=== PATIENT | female | born 1930 | race Caucasian/White ===

== ENCOUNTER 2016-10-11 21:16 | Observation (INO) | payer MEDICARE ==
--- NOTE | 2016-10-11 21:32 | ED.REPORT ---
HPI-Stroke / CVA Oct 11, 2016 ED Provider: Dr. Jossue Costello M.D. An 86 year old female with a history of epilepsy, ICH, CT, and brain tumor presents to the ED via EMS from her halfway with right-sided weakness onset sometime after 5pm. The patient was given her evening medication at 5pm and appeared normal at this time, per her nurse. However, she soon became nonverbal with a right-sided gaze. EMS found the patient with a BP of 162/70, an O2 sat of 97% on 3L, and otherwise normal vital signs. En route she was able to minimally follow commands including squeezing her left hand and turning her head to the left. The patient was in the ED on 09/20/16 with similar symptoms and subsequent seizure. Notes from that visit indicate patient is DNR/DNI on hospice. Nursing Notes Stated Complaint: RIGHT SIDED WEAKNESS Nursing Notes Reviewed: Yes Allergies: Coded Allergies: erythromycin base (Verified Allergy, Unknown, 10/11/16) prednisone (Verified Allergy, Unknown, 10/11/16) zolpidem (Verified Allergy, Unknown, 10/11/16) General Time Seen by Provider: 21:31 Chief Complaint Weakness, Unable to speak Right-sided Hx Obtained From: EMS Unable to Obtain Hx: Patient condition, Mental status Arrived By: Ambulance Time last known well 1700 Sudden in Onset?: Yes Symptom Duration: Since onset Progression Since Onset: Gradually worsening Pertinent Negative: Relieved by nothing Context Related History: Reports: Seizure disorder Context: Immunizations Unknown Recent Healthcare: Recent doctor visit Similar Sx Previous: Yes Past Medical History Past Medical History Notes: Pt is DNR/DNI Past Medical History Epilepsy Hx of ICH Hx of CT Brain tumor Past Surgical History None reported Smoking History Unknown if Ever Smoker Review of Systems Unable to Obtain ROS Patient condition, Mental status Physical Exam Physical Exam Notes: Initial Vital Signs Vital Signs (First) Date Time Temp Pulse Resp B/P Pulse Ox O2 Delivery O2 Flow Rate FiO2 10/11/16 21:44 223/177 10/11/16 21:49 68 14 99 Simple Mask 5 Initial VS: Reviewed Abdomen / GI: Soft, Non-tender Skin: Warm, Dry GENERAL/CONSTITUTIONAL: Patient's eyes are open but she does not follow commands. She is nonverbal. Head / Eyes: Atraumatic, Normocephalic Right preferential gaze Neck: Atraumatic, Supple Respiratory / Chest: Breath sounds NL, Breath sounds = bilat, No respiratory distress Cardiovascular: Heart rate NL, Regular rhythm, Heart sounds NL NEUROLOGIC: No motor function in right arm, some in left arm. Unable to follow commands. Re-Eval/Medical Decision Med Decision/Clinical Course Shortly after arrival the patient developed a grand mal generalized tonic- clonic seizure which was aborted with 5 mg of IV Valium. I discussed the case subsequently with her son who was quite confident that all of the symptoms this evening were related to a seizure disorder that she that she has suffered from for some time now. He says that she was recently discontinued off of hospice 2 or 3 weeks ago but that has nothing to do with her seizure disorder and is related to her cardiac disease. Pacemaker had been recommended but she had declined this. He reiterates her DO NOT RESUSCITATE/comfort measures only status though I have no POLST form to that effect. Her son says that last time she was here earlier this month with similar symptoms she underwent a large workup which she says that she should not undergo this time nor does he have any desire for further testing only for her comfort and treatment of seizures. After couple of hours she remains extremely sedated and unable to respond verbally in any way or follow commands. Consistent with the sons experienced with previous episodes like this we will admit her to the hospital for observation until she becomes alert enough to be transferred back to her assisted living status at [facility]. Source of Hx: Old records Re-Evaluation/Progress #1: Time of Eval: 21:52 Re-Evaluation/Progress Note: Patient is currently exhitibing grand mal seizure activity. Re-Evaluation/Progress #2: Time of Eval: 21:59 Re-Evaluation/Progress Note: Discussed patient's case with her son over the phone. He reports that the patient has had similar symptoms many times in the past associated with seizures, usually followed by a two-day period of decreased responsiveness. The patient is DNR/DNI. Discussed with patient's son diagnosis and plan for admit. Patient's son agrees with plan for care and all questions were addressed. Consultation #1: Call Returned at: 21:55 Note: Hospice: Note from a previous visit indicated patient was under hospice care. However, she is no longer in their system. Consultation #2: Referral / Consult Name: Cristian Norris MD Consulted With: Convention Services Director Call Returned at: 23:32 Screen Printing Equipment Setter: Agrees with eval, Agrees with plan, Accepts admit Counseled Regarding: Diagnosis, Need for admission Patient Discharge & Departure Impression: Primary Impression: Seizure Additional Impression: Sedated Disposition: ADMITTED TO HOSPITAL Discharge Condition All VS Reviewed: Yes Condition: Improved Referrals: NOPCP (PCP) (Family) Madan[facility] Attestation Portions of this note were transcribed by Lucinda Gonzales. I, Dr. Costello, personally performed the history, physical exam, and medical decision-making; I reviewed and confirmed the accuracy of the information in the transcribed note. Signed by: Esther Mcbride, 10/11/2016, 23:45 Jossue Costello MD Oct 11, 2016 21:32 LUCINDA GONZALES Oct 11, 2016 22:11
[2016-10-11 21:44] VITALS: BP 223/177
[2016-10-11 21:49] VITALS: BP 118/54; PULSE 68; RESP 14; O2SAT 99
[2016-10-11 23:30] VITALS: BP 124/61; PULSE 67; RESP 14; O2SAT 98
[2016-10-11] MEDS ORDERED: Polyethylene Glycol (PEG) 17 Gm Powder PO PRN (23:40)
[2016-10-11] MEDS ORDERED: Ondansetron 2 mg/mL 2 mL Inj IVPUSH PRN (23:40)
[2016-10-11] MEDS ORDERED: Alum-Mag Hydrox-Simeth 30 mL Suspension PO PRN (23:40)
--- NOTE | 2016-10-12 00:08 | PCM.HPMED ---
Subjective Date of Service Oct 12, 2016 Primary Provider: Admitting Physician: Primary Care Physician: Monse Danielson MD Attending Physician: Chief Complaint: Right sided weakness History of Present Illness: Patient is an 86 year old female with a history of epilepsy, ICH, [place], and brain tumor. She presented to the ED via EMS from her fpc with right-sided weakness onset sometime after 5pm. The patient was given her evening medication at 5pm and appeared normal at this time, per her nurse. However, she soon became nonverbal with a right-sided gaze. EMS found the patient with a BP of 162 /70, an O2 sat of 97% on 3L, and otherwise normal vital signs. En route she was able to minimally follow commands including squeezing her left hand and turning her head to the left. The patient was in the ED on 09/20/16 with similar symptoms and subsequent seizure. ED spoke with son who was quite confident that all of the symptoms this evening were related to a seizure disorder that she that she has suffered from for some time now. He says that she was recently discontinued off of hospice 2 or 3 weeks ago but that has nothing to do with her seizure disorder and is related to her cardiac disease. Son reported that last time she was here earlier this month with similar symptoms she underwent a large workup which she says that she should not undergo this time nor does he have any desire for further testing only for her comfort and treatment of seizures. He stated she is DO NOT RESUSCITATE/comfort measures.. At time of exam patient is non verbal somnolent. History taken from ED and EMS, patient history limited due to patient's medical condition and response to medication. Review of Systems: Unable to obtain due to patient's LOC Allergies Coded Allergies: erythromycin base (Verified Allergy, Unknown, 10/11/16) prednisone (Verified Allergy, Unknown, 10/11/16) zolpidem (Verified Allergy, Unknown, 10/11/16) PMH Epilepsy ICH [place] Brain tumor On comfort care Surgical History Unable to obtain due to patent LOC Family History Unable to obtain due to patent LOC Social History Smoking Status: Unknown if Ever Smoker Exam Vital Signs Vital Sign - Last Date Time Temp Pulse Resp B/P Pulse Ox O2 Delivery O2 Flow Rate FiO2 10/11/16 23:30 67 14 124/61 98 Nasal Cannula 2 Exam General: Somolent, no acute distress, frail appearing 86 y.o. F, alter to person and pain HEENT: Normocephalic, atraumatic, old surgical scar on right temporal region. External ears without defect. Pupils narrowed equal, round, and reactive to light and accommodation. Anicteric sclerae, moist conjunctivae, and no lid lag. Neck: Supple with full range of motion. No jugular venous distension. No bruits. No lymphadenopathy or thyromegaly. Cardiovascular: Regular rate and rhythm with no murmurs, rubs, or gallops appreciated Pulmonary: Clear to auscultation bilaterally with no crackles, wheezes, or rhonchi. Normal respiratory effort with no use of accessory muscles. Abdomen: Bowel tones present. Soft, nontender, nondistended. No hepatosplenomegaly or masses appreciated. Extremities: Right sided weakness, No clubbing, cyanosis, edema, or lymphadenopathy appreciated. Skin: Normal temperature, turgor, and texture; no rash, ulcers, or subcutaneous nodules appreciated. Neurological: Non-verbal, alert to person and pain, right peripheral gaze, right sided weakness, able to squeeze left hand on command, able to move lower extremities. Assessment & Plan Patient is an 86 year old female with a history of epilepsy, ICH, [place], and brain tumor. Admitted for observation of acute encephalopathy due to sedative response to Ativan given for seizure. Patient is DNR/DNI on comfort care at [facility], son does not wish for further work up. 1. Acute encephalopathy - Continue to monitor vitals and respiratory status - Continue cautious fluid hydration NS @ 80 mls/hr - Patient is on comfort care and son does not wish for further work up 2. Acute sedation due to Benzodiazepine - Continue to monitor as above #1 CODE STATUS: DNR/DNI DVT prophylaxis: SCDs Patient is admitted under observation status with expected length of stay less than 2 midnights due to severity of presenting symptoms, risk of adverse event Attending Statement The patient was seen and examined together with Dr. Stacy on 10/11 and I agree with the history, exam and plan as outlined in the note above. MAZIN STACY DO Oct 12, 2016 00:08 Cristian Norris MD Oct 12, 2016 02:24
[2016-10-12 01:12] VITALS: BP 132/62; PULSE 60; RESP 15; O2SAT 95
[2016-10-12] MEDS: 0.9% Sodium Chloride 1,000 ML IV SCH ×2 (01:51→12:50)
--- NOTE | 2016-10-12 02:36 | NUR ---
Admit note: Pt arrived from the ER, slide transfer to bed. Pt is opening eyes when name is stated, is saying "I'm cold"; but not verbally responding to questions when asked. Pt moving all extremities on own, restless in bed, adjusting covers on own. Seizure pads in place. Unable to get information for the admit, attempted to complete med rec, old information was sent from SNF. Called [facility] and requested current medication list; awaiting a fax at this time. Bed alarm activated for pt safety.
[2016-10-12 02:40] LABS: APPEARANCE,URINE HAZY (CLEAR,HAZY); COLOR,URINE STRAW (YELLOW); OCCULT BLOOD,URINE TRACE (NEGATIVE); PH,URINE 6.5 (5.0-8.0); UROBILINOGEN,URINE NORMAL (NORMAL)
[2016-10-12] MEDS ORDERED: CALC-952 PO (03:13)
[2016-10-12] MEDS ORDERED: CLOP75TA3 PO (03:13)
[2016-10-12] MEDS ORDERED: LEVO25TA73 PO (03:13)
[2016-10-12] MEDS ORDERED: GUAI-656 PO (03:13)
[2016-10-12] MEDS ORDERED: IPRA3AMP IH (03:13)
[2016-10-12] MEDS ORDERED: ATRV10T PO (03:13)
[2016-10-12] MEDS ORDERED: GUAI120L30 PO (03:13)
[2016-10-12] MEDS ORDERED: DEXT1DRO8 BOTH_EYES (03:13)
[2016-10-12] MEDS ORDERED: PSYL1PAC10 PO (03:13)
[2016-10-12] MEDS ORDERED: CHOL100043 PO (03:13)
[2016-10-12] MEDS ORDERED: HYDR25SU7 RC (03:13)
[2016-10-12] MEDS ORDERED: AMOX500C2 PO (03:13)
[2016-10-12] MEDS ORDERED: MENT2.7L MM (03:13)
[2016-10-12] MEDS ORDERED: GABA-502 PO (03:13)
[2016-10-12] MEDS ORDERED: NITR0.4T SL (03:14)
[2016-10-12] MEDS ORDERED: HYDR-4003 PO (03:14)
[2016-10-12] MEDS ORDERED: SPIR25TA3 PO (03:14)
[2016-10-12] MEDS ORDERED: POLY1DRO BOTH_EYES (03:14)
[2016-10-12] MEDS ORDERED: METO25TA6 PO (03:14)
[2016-10-12] MEDS ORDERED: URSO250T11 PO (03:14)
[2016-10-12] MEDS ORDERED: POTA20LI2 PO (03:14)
[2016-10-12] MEDS ORDERED: CARB1DRO BOTH_EYES (03:14)
[2016-10-12 05:43] VITALS: BP 146/64; PULSE 64; RESP 16; O2SAT 97
--- NOTE | 2016-10-12 12:14 | PCM.DIMED ---
Cherise Chung DO 10/12/16 1207: Discharge Instructions Date of Service Oct 12, 2016 Dates of Hospitalization Oct 12, 2016 at 00:28 Discharge Diagnosis Discharge Diagnosis 1. Acute encephalopathy 2. Urinary tract infection 3. Acute sedation due to benzodiazepine, resolved 4. History of epilepsy 5. History of [place] Medication Instructions Take Keflex twice a day for 3 days Test Results Urinalysis shows possible UTI, culture pending. Diet Other (dysphagia) Call your provider Fever or Chills, Excessive diarrhea, Weakness (unilateral) Patient Instructions Return home to [facility] Follow-up plan follow up with care provider at [place], recheck Urine in 1 week if desired for follow up from antibiotic treatment. Follow-up Provider: Monse Danielson MD Follow-up with PCP in: 1 week Delmar Melgoza MD 10/12/16 1459: Discharge Instructions Attending's Statement The patient was seen and examined independently on 10/12/2016and discussed case with Dr. Chung and I agree with the discharge instructions and plan as outlined in the note above. Cherise Chung DO Oct 12, 2016 12:07 Delmar Melgoza MD Oct 12, 2016 14:59
[2016-10-12] MEDS ORDERED: Acetaminophen PO (12:21)
[2016-10-12] MEDS ORDERED: CEPH500C PO (12:21)
--- NOTE | 2016-10-12 13:36 | NUR ---
Scheduled BLS transport for 1430 via [facility], patient is returning to [facility] assisted living. Updated COMMUNITY HEALTH NAVIGATOR
[2016-10-12 13:38] VITALS: BP 127/59; PULSE 62; RESP 16; O2SAT 96
--- NOTE | 2016-10-12 14:54 | NUR ---
Discharge Pt transferred back to [facility] via EMS at 1453. Pt denied pain. IV d/c. All personal belongings left with pt. Report called to Esmer at [facility]. Family updated of transfer by ABIODUN.
--- NOTE | 2016-10-12 15:18 | NUR ---
Social Work-initial assessment/ discharge: data:See initial assessment. Pt is a 86 y/o female who was admitted on 10/12/16 for seizure per H&P. Pt's insurance is [facility] and PCP is Monse Danielson MD. EMR reviewed. Pt has baseline dementia. SW called and spoke with Son Juan Jose. Pt resides at [facility] where she remains independent with basic ADLs. Pt uses a fww at baseline and does not drive. Pt has no HH history, but has been to [facility] SNF. Pt has no manager terminal care insurance or VA benefits. SW discussed DPOA/ advanced directive, son confirms they have completed this paperwork. SW spoke with Adrienne in Admissions at [facility] who confirms that she has spoken with assisted living and they can accept pt back today. SW faxed discharge orders. SW and UR Specialist reviewed chart and feel pt meets criteria for BLS. UR specialist set this up for 1430. SW updated Adrienne at [facility] and she will let [facility] know the time. ABIODUN called son back and updated him on discharge. SW provided him with discharge time and pt returning to Suites. ABIODUN explained that ABIODUN cannot guarantee that insurance will cover the cost of transport, son agreeable to proceed. All updated and agreeable to plan. Assessment;Pt to return back to [facility]. Plan:pt to discharge back [facility] today via BLS at 1430. All updated and agreeable to plan. EWA Esparza Addendum: 10/12/16 at 1522 by CHELLY KIDD Amended: Links added.
--- NOTE | 2016-10-12 18:25 | PCM.DC.MED ---
Discharge Summary Date of Service Oct 12, 2016 Dates of Hospitalization Date of Hospital Admission Oct 12, 2016 at 00:28 Date of Discharge: Oct 12, 2016 Providers: Admitting Physician: Cristian Norris MD Primary Care Physician: Monse Danielson MD Attending Physician: Cristian Norris MD Diagnosis at Time of Discharge Diagnosis at Time of Discharge 1. Acute encephalopathy 2. Urinary tract infection 3. Acute sedation due to benzodiazepine, resolved 4. History of epilepsy 5. History of [place] Brief History History of present illness on admission by Dr. Stacy: Patient is an 86 year old female with a history of epilepsy, ICH, [place], and brain tumor. She presented to the ED via EMS from her halfway with right-sided weakness onset sometime after 5pm. The patient was given her evening medication at 5pm and appeared normal at this time, per her nurse. However, she soon became nonverbal with a right-sided gaze. EMS found the patient with a BP of 162 /70, an O2 sat of 97% on 3L, and otherwise normal vital signs. En route she was able to minimally follow commands including squeezing her left hand and turning her head to the left. The patient was in the ED on 09/20/16 with similar symptoms and subsequent seizure. ED spoke with son who was quite confident that all of the symptoms this evening were related to a seizure disorder that she that she has suffered from for some time now. He says that she was recently discontinued off of hospice 2 or 3 weeks ago but that has nothing to do with her seizure disorder and is related to her cardiac disease. Son reported that last time she was here earlier this month with similar symptoms she underwent a large workup which she says that she should not undergo this time nor does he have any desire for further testing only for her comfort and treatment of seizures. He stated she is DO NOT RESUSCITATE/comfort measures.. At time of exam patient is non verbal somnolent. History taken from ED and EMS, patient history limited due to patient's medical condition and response to medication. Hospital Course Patient is an 86 year old female with a history of epilepsy, ICH, [place], and brain tumor. Admitted for observation of acute encephalopathy due to sedative response to volume given for seizure in the emergency department. Patient is DNR /DNI on comfort care at [facility] home, son does not wish for further work up. 1. Acute encephalopathy - due to valium given in ED and postictal - treated with Cautious fluid hydration NS @ 80 mls/hr - Patient is on comfort care and son does not wish for further work up -discharge back to [place] on comfort care -mentation improved with conservative management 2. Urinary tract infection, present on admission, chronicity unknown - Patient treated with oral Keflex and given a prescription for a 3 day course. - POLST form at [facility] home referenced with antibiotic treatment okay patient - By mouth Tylenol given to patient as she appeared to have some mild discomfort on examination. 3. Acute sedation due to Benzodiazepine - Patient monitored with resolution of sedation by morning examination. CODE STATUS: DNR/DNI DVT prophylaxis: SCDs Exam Vital Signs (Last) Date Time Temp Pulse Resp B/P Pulse Ox O2 Delivery O2 Flow Rate FiO2 10/12/16 13:38 36.7 62 16 127/59 96 Room Air 10/11/16 23:30 2 Exam General: Elderly female in mild distress needing to urinate, well-developed, nourished HEENT: Normocephalic, atraumatic. External ears without defect. Pupils equal, round, and reactive to light and accommodation. Anicteric sclerae, moist conjunctivae, and no lid lag. Oropharynx free of erythema and cobble stoning mouth with some crusting on the lips. Neck: Supple with full range of motion. No jugular venous distension. No lymphadenopathy or thyromegaly. Cardiovascular: Regular rate and rhythm with no murmurs, rubs, or gallops appreciated Pulmonary: Clear to auscultation bilaterally with no crackles, wheezes, or rhonchi. Normal respiratory effort with no use of accessory muscles. Abdomen: Bowel tones present. Soft, nontender, nondistended. No hepatosplenomegaly or masses appreciated. Extremities: No clubbing, cyanosis, edema, or lymphadenopathy appreciated. Skin: Normal temperature, turgor, and texture; no rash, ulcers, or subcutaneous nodules appreciated. Neurological: Patient generally weak and unable to participate in full neurologic exam Psychiatric: not speaking in complete sentences or answering questions appropriately. Patient states that she wants to Test 10/12/16 02:00 Urine Color Straw (YELLOW) Urine Appearance Hazy (CLEAR,HAZY) Urine pH 6.5 (5.0-8.0) Urine Specific [place] 1.010 (1.003-1.035) Urine Protein Negativemg/dL (NEG,TRACE) Urine Glucose (UA) Negativemg/dL (NEGATIVE) Urine Ketones Negativemg/dL (NEGATIVE) Urine Occult Blood Trace (NEGATIVE) Urine Nitrite Negative (NEGATIVE) Urine Bilirubin Negative (NEGATIVE) Urine Urobilinogen Normalmg/dL (NORMAL) Urine Leukocyte Esterase Small (NEGATIVE) Urine RBC 3-10/hpf (0-2) Urine WBC 11-50/hpf (0-5) Urine Epithelial Cells Few/hpf (NONE-MOD) Urine Crystals None seen (NONE SEEN) Urine Bacteria None/hpf (NONE-FEW) Urine Hyaline Casts None/lpf (NONE) Urine Granular Casts None seen (NONE SEEN) Urine Waxy Casts None seen (NONE SEEN) Urine Red Blood Cell Casts None seen (NONE SEEN) Urine White Blood Cell Casts None seen (NONE SEEN) Urine Mucus None seen (None Seen) Urine Trichomonas None seen (NONE SEEN) Urine Yeast None (NONE SEEN) Urinalysis Comment Urine Culture Reflexed Indicated Microbiology Results Urine culture pending Discharge Medications Discharge Medications Atorvastatin (Lipitor) 10 Mg Tab 10 MG PO HS (Reported) Calcium Carbonate/Vitamin D3 (Calcium 500 mg Chewable Tablet) 1 Each Tab.chew 1 EACH PO BID (Reported) Cephalexin (Cephalexin) 500 Mg Capsule 500 MG PO BID Prescribed by: LEDY JEROME DO Cholecalciferol (Vitamin D3) (Vitamin D) 1,000 Unit Tablet 1,000 UNIT PO DAILY ( Reported) Clopidogrel Bisulfate (Plavix) 75 Mg Tablet 75 MG PO DAILY (Reported) Gabapentin (Gabapentin) 300 Mg Capsule 300 MG PO QID (Reported) Levothyroxine Sodium (Levo-T) 25 Mcg Tablet 37.5 MCG PO DAILY (Reported) Metoprolol Tartrate (Metoprolol Tartrate) 25 Mg Tablet 25 MG PO BID (Reported) HOLD IF SBP <100 OR HR <55 Potassium Chloride (Potassium Chloride) 20 Meq/15 Ml Liquid 20 MEQ PO DAILY ( Reported) Psyllium Seed (with Sugar) (Metamucil Packet) 1 Each Packet 1 EACH PO DAILY ( Reported) Spironolactone (Spironolactone) 25 Mg Tablet 12.5 MG PO DAILY (Reported) Ursodiol (Ursodiol) 250 Mg Tablet 500 MG PO BID (Reported) As needed ([Acetaminophen]) 325 MG TABLET 650 MG PO Q6H PRN PRN for pain or irritability Prescribed by: LEDY JEROME, Amoxicillin (Amoxicillin) 500 Mg Capsule 2,000 MG PO PRN PRN (Reported) TAKE 4(500MG) CAPSULES 1 HOUR PRIOR TO DENTAL PROCEDURE. Carboxymethylcellulose Sodium (Lubricant Plus) 0.5 % Droperette 1 EACH BOTH_ EYES Q1H PRN PRN DRY EYES (Reported) Dextran 70/Hypromellose/Pf (Artificial Tears Drops) 1 Each Droperette 2 DROP BOTH_EYES QID PRN PRN For Eye Irritation (Reported) Guaifenesin (Tussin Chest Congestion) 100 Mg/5 Ml Liquid 200 MG PO Q6H PRN PRN For Cough (Reported) Guaifenesin/Codeine Phosphate (Guaifen-Codeine 100-10 mg/5 ml) 120 Ml Liquid 5- 10 ML PO Q4H PRN PRN For Cough (Reported) 5 mL FOR MODERATE COUGH, 10 mL FOR SEVERE COUGH Hydrocodone-Acetaminophen 5-325 mg (Hydrocodone-Acetaminophen 5-325 mg) 1 Each Tablet 1 TABLET PO Q4H PRN PRN For Pain (Reported) Hydrocortisone Acetate (Hydrocortisone Acetate) 25 Mg Supp.rect 25 MG RC BID PRN PRN HEMORROIDS (Reported) Ipratropium/Albuterol Sulfate (Iprat-Albut 0.5-3(2.5) mg/3 mL Inhalant Soln) 3 Ml Ampul.neb 3 ML IH Q6 PRN PRN For Shortness of Breath (Reported) Menthol (Cough Drops) 2.7 Mg Lozenge Unknown Dose MM 1HR PRN PRN SORE THROAT ( Reported) Nitroglycerin SL (Nitrostat) 0.4 Mg Tab.subl 0.4 MG SL Q5MIN PRN PRN For Chest Pain (Reported) TOTAL OF THREE TABLETS, IF NOT EFFECTIVE CALL 911 Polyvinyl Alcohol/Povidone/Pf (Refresh Classic Eye Drops) 1 Each Droperette 1 EACH BOTH_EYES Q4H PRN PRN DRY EYES (Reported) Additional med instructions Take Keflex twice a day for 3 days Followup Plan Disposition: Patient is discharged back to [facility] living for comfort care. Follow-up plan follow up with care provider at [place], recheck Urine in 1 week if desired for follow up from antibiotic treatment. Discharge Diet: Other (dysphagia) Patient Instructions Return home to [place] Follow-up Provider: Monse Danielson MD Follow-up with PCP in: 1 week Attending Statement The patient was seen and examined together with Dr. Jerome on 10/12/2016 and I agree with the discharge summary as outlined in the note above. copies to: Monse Danielson MD, Erika R DO Oct 12, 2016 18:25 Delmar Melgoza MD Oct 12, 2016 20:58
--- NOTE | 2016-10-12 18:33 | NUR ---
Case Management: Attempted to provide REECE at 1800--pt discharged. Fatimah Owen RN
== END 2016-10-12 14:58 ==
LOC: SED 21:16 → EDBD 21:16 → EDUNIT# 21:16 → MPC 10-12 00:28
PROVIDERS: ADMIT Hospitalist; ATTEND Hospitalist
DX: G93.40 Encephalopathy, unspecified (principal); T42.4X5A Adverse effect of benzodiazepines, initial encounter; Y92.122 Bedroom in nursing home as the place of occurrence of the external cause; N39.0 Urinary tract infection, site not specified; G40.909 Epilepsy, unspecified, not intractable, without status epilepticus; I25.2 Old myocardial infarction; Z86.69 Personal history of other diseases of the nervous system and sense organs; Z66 Do not resuscitate
CPT/HCPCS: 81000; 87086; 87088; 96374; 96375; 99285; G0378; J2060; J3360; J7030